=== PATIENT | female | born 1990 | race Caucasian/White ===

== ENCOUNTER 2019-11-30 22:16 | Outpatient (CLI) | payer BC ==
[~2019-11-30] VITALS: Ht 165.1 cm; Wt 99.5 kg
[2019-11-30 22:53] VITALS: BP 129/69; PULSE 68; TEMP 97.9
[2019-11-30] MEDS ORDERED: PRENATAL MVI PO (22:57)
[2019-11-30] MEDS ORDERED: IRON 27 MG PO (22:58)
--- NOTE | 2019-11-30 23:00 | NUR ---
G1 at 39.1 weeks gestation to LDR6 with c/o contractions since 1430. Patient was seen in the office earlier today, she was 1 cm and had her membranes stripped by Dr. Acosta. She reports good movement and denies leaking of fluid or vaginal bleeding. Patient changed into gown, wedged left in bed. EFMs explained and applied. FHR 140 bpm and reactive. CTX q2-4 minutes per toco. VSS. SVE /-3. Plan of care reviewed with patient and spouse.
[2019-12-01 00:15] VITALS: BP 143/62; PULSE 85
--- NOTE | 2019-12-01 00:15 | NUR ---
SVE without change. Contractions continue q2-3 minutes, patient breathing some of them but also able to talk through them. She states that they feel like "bad cramps". Patient lives 40 minutes away from the hospital so we will watch for another hour.
[2019-12-01 01:35] VITALS: BP 127/76; PULSE 86
--- NOTE | 2019-12-01 01:35 | NUR ---
0110 SVE without change. Patient breathing through contractions, but able to walk and talk through them. She states that she is ready and wanting to go home. 0130 Tylenol and vistaril given per orders. Discharge instructions reviewed with patient and spouse. Questions answered.
[2019-12-01] MEDS ORDERED: TYLENOL 500MG500 MG PO (15:51)
[2019-12-01] MEDS ORDERED: BENADRYL25 M2 PO (15:51)
[2019-12-02] MEDS ORDERED: IBU600 MG PO (12:57)
== END 2019-12-01 01:45 | disposition home or self-care (01) ==
LOC: LDRO 22:16
DX: O62.9 Abnormality of forces of labor, unspecified (principal); Z3A.39 39 weeks gestation of pregnancy

== ENCOUNTER 2019-12-01 15:21 | Inpatient (IN) | payer BC ==
[~2019-12-01] VITALS: Ht 165.1 cm; Wt 98.6 kg
[2019-12-01] VITALS (30 sets, daily range): BP systolic 104–145; BP diastolic 56–90; PULSE 64–129; TEMP 97.6–99.3
[~2019-12-01 15:21] MED LIST: IRON 27 MG PO; PRENATAL MVI PO
--- NOTE | 2019-12-01 15:30 | NUR ---
Patient ambulatory to LR3 with spouse, changed into gown, FHR/TOCO monitors placed and explained. Patient sent over as a direct admission per Dr. Acosta from office. 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 Patient has been augustine since 0500 yesterday and have become stronger. Denies leaking of fluid/vaginal bleeding/decreased movement. Plan of care discussed. 1550: IV started in right forearm, blood obtained and to lab, LR infusing. Consents gone over and signed/assessment completed/ packet given. 1610: Patient requesting epidural and [employer] TECHNICIAN notified.
[2019-12-01] MEDS ORDERED: TYLENOL 500MG500 MG PO (15:51)
[2019-12-01] MEDS ORDERED: BENADRYL25 M2 PO (15:51)
[2019-12-01 16:25] LABS: BASO % 0.2 % (0.0-2.0); EOS % 0.1 % (0-4.0); GRAN # 10.6 (1.4-6.5); GRAN % 80.5 % (42.2-75.2); LYMPH # 1.6 (1.2-3.4); LYMPH % 12.1 % (20.0-51.0); MEAN CELL VOLUME 86 fl (80.0-100.0); MEAN CORPUSCULAR HEMOGLOBIN 29 pg (27.0-31.0); MEAN CORPUSCULAR HGB CONC 34 g/dl (33.0-37.0); MEAN PLATELET VOLUME 11.6 fl (7.4-10.4); MONO # 0.9 (0.1-0.6); MONO % 6.7 % (1.7-9.3); PLATELET COUNT 199 K/mm3 (130-400); REDCELL DISTRIBUTION WIDTH-CV 14.3 % (11.5-14.5)
[2019-12-01 16:27] LABS: HEMATOCRIT 35.1 % (37.0-47.0)
--- NOTE | 2019-12-01 16:42 | NUR ---
Sony PERRY at bedside and patient sitting up on edge of bed. Difficutly tracing FHR due to maternal position. 1652: Test dose given and patient tolerates well. Patient repositioned and safety precautions/plan of care discussed. 1708: Dr. Acosta at bedside to assess patient and FHR strip. 1710: SVE per physician /-2. AROM at this time and clear fluid noted. Plan of care discussed and orders to start pitocin at this time. 1716: Pitocin discussed and patient agrees and pitocin started at 2mU. 1800: Carvajal catheter placed and patient tolerates well. SVE-/-2.
--- NOTE | 2019-12-01 18:20 | NUR ---
Report received from ELIAN Chao. Sony PERRY at bedside observing epidural site. Pt repostioned to RL with left foot in stirrups. Plan of care explained to pt and who verbalize their understanding. 1909: Pt repositioned to LL with right leg in stirrups at this time. Denies needing anything else at this time. 1954: Pt repositioned to high fowlers cornelia position. 2020: Recurrent varibales noted with contractions. Broken but audible. SVE 5-6/90/0. Pt states she is feeling more pressure with contractions and breathing through them. Pt to push epidural button. 2042: Recurrent varibale decelerations noted. Pt repositioned to Right lateral position and LR bolus infusing. 2045: RN remains in room late deceleration noted with FHR in 110's Oxygen via oxymask applied. 2049: SVE 7-8/90/0. 2051: updated on pts status. See physican notification. 2101: Scalp electrode applied per orders. FHR tracing well.
--- NOTE | 2019-12-01 21:50 | NUR ---
Recurrent varibales noted down to 80bpm. SVE unchanged. Pt repositioned to left lateral position. Oxygen reapplied.
--- NOTE | 2019-12-01 22:10 | NUR ---
SVE AL/+2. FHR having recurrent deep varibales noted down to 70bpms at lowest point, oxygen remains on. 2212: called and requested at hospital. See physican notification. 2219: Carvajal removed without difficulty. 2224: SVE C/+2. Pt educated on pushing with contractions and starts pushing with this RN. 2229: at bedside and reviews FHR strip. Pt starts pushing with provider. [id number]: FHR deceleration audible after pushing. FHR reactive with scalp stimulation. remains at bedside pushing with pt and reviewing FHR strip. 2305: Pt prepped for delivery and placed into footplates. Pt continues pusing with . 0: Second degree MLE cut by provider. 2311: Delivery of infants head. NC X1 reduced by . 2312: Spontaneous delivery of viable female by . Mouth and nares bulb suctioned by provider. Pitocin stopped per protocol. Infant to mothers chest where dried and stimulated by nursery RN. Care of assumed by James PLUMMER. 2316: Spontaneous delivery of intact placenta by . Pitocin resummed at 333mus/hr per protocol. Second degree MLE repaired by . Internal exam with small amount of clots. Fundal message completed by provider, bleeding WNL. Pericare provided, pads changed and ice pack applied to perineum. Pt repositioned in bed, plan of care and safety plans explained to pt who verblaizes understanding. Call light within reach. See doctor dications and anesthesia records.
[2019-12-02] VITALS (10 sets, daily range): BP systolic 102–126; BP diastolic 55–71; PULSE 75–102; TEMP 97.8–99.1
[2019-12-02] MEDS ORDERED: IBU600 MG PO (12:57)
[2019-12-03] VITALS: BP 123/74; PULSE 76; TEMP 99.1
[2019-12-03 07:00] VITALS: BP 124/76; PULSE 76; TEMP 98.2
[2019-12-03 16:08] VITALS: BP 122/68; PULSE 72; TEMP 98.1
== END 2019-12-03 17:16 | disposition home or self-care (01) | DRG 807 ==
LOC: LDR 15:21 → OB 15:30 → LDR 15:30 → OB 12-02 02:56
PROVIDERS: ADMIT Obstetrics & Gynecology
PROC: 10E0XZZ Delivery of Products of Conception, External Approach (ICD-10-PCS; principal; 2019-12-01)
PROC: 0KQM0ZZ Repair Perineum Muscle, Open Approach (ICD-10-PCS; 2019-12-01)
PROC: 10907ZC Drainage of Amniotic Fluid, Therapeutic from Products of Conception, Via Natural or Artificial Opening (ICD-10-PCS; 2019-12-01)
DX: O99.02 Anemia complicating childbirth (principal); Z37.0 Single live birth; O70.1 Second degree perineal laceration during delivery; D64.9 Anemia, unspecified; Z3A.39 39 weeks gestation of pregnancy
CPT/HCPCS: J2590; J7120